=== PATIENT | male | born 1960 | race Caucasian/White ===

== ENCOUNTER 2021-08-03 13:13 | Emergency (ER) | payer MEDICARE ==
--- NOTE | 2021-08-03 15:39 | ER ---
Nurse's Notes [facility] Name: Christian Escalante Age: 61 yrs Sex: Male : 1960 Arrival Date: 08/03/2021 Time: 13:16 Bed Waiting Private MD: Diagnosis: Presentation: 08/03 13:28 Chief complaint: Patient states: "Im pretty sure I have staph". Pt first noticed sores vg1 about 3 days ago. States on head, lip, MARIE arms, MARIE legs and buttocks. Coronavirus screen: Vaccine status: Patient reports receiving the 1st dose of the Covid vaccine. J\\T\\J Client denies travel out of the [place] in the last 14 days. Ebola Screen: Patient negative for fever greater than or equal to 101.5 degrees Fahrenheit, and additional compatible Ebola Virus Disease symptoms. Initial Sepsis Screen: Does the patient meet any 2 criteria? No. Patient's initial sepsis screen is negative. Does the patient have a suspected source of infection? No. Patient's initial sepsis screen is negative. Risk Assessment: Do you want to hurt yourself or someone else? Patient reports no desire to harm self or others. Onset of symptoms was July 31, 2021. 13:28 Acuity: SUKHDEEP 3 vg1 13:28 Method Of Arrival: EMS: [facility] vg1 Triage Assessment: 13:33 General: Appears in no apparent distress. comfortable, Behavior is cooperative, vg1 anxious. Pain: Complains of pain in MARIE arms, MARIE legs. Historical: - Allergies: 13:32 Stadol; vg1 - Home Meds: 13:40 atorvastatin oral [Active]; amlodipine oral [Active]; Amitriptyline Oral [Active]; vg1 Albuterol Inhl [Active]; Cyclobenzaprine Oral [Active]; Furosemide Oral [Active]; Lisinopril Oral [Active]; Omeprazole Oral [Active]; rivaroxaban oral [Active]; Xarelto oral [Active]; - PMHx: 13:33 Hypertensive disorder; High Cholesterol; Emphysema; Asbestosis; vg1 - Immunization history:: Adult Immunizations up to date, Client reports receiving the Miguel \\T\\ Miguel single-dose vaccine. - Social history:: Smoking status: Patient reports the use of cigarette tobacco products, smokes one pack cigarettes per day. Assessment: 15:15 Reassessment: Called pt from [facility]; pt did not respond. vg1 15:38 Reassessment: called from lobby; pt did not respond. Security stated pt stated was vg1 leaving and had someone to mushroom picker from hospital. Vital Signs: 13:28 BP 112 / 85; Pulse 95; Resp 18; Temp 97.6; Pulse Ox 96% ; Weight 70.76 kg; Height 6 ft. vg1 1 in. (185.42 cm); Pain 10/10; 13:28 Body Mass Index 20.58 (70.76 kg, 185.42 cm) vg1 ED Course: 13:16 Patient arrived in ED. ds1 13:32 Triage completed. vg1 13:33 Arm band placed on. vg1 14:07 Taz Ram PA is PHCP. serjio 14:07 Edward Medeiros MD is Attending Physician. serjio Administered Medications: No medications were administered Outcome: 15:39 Patient left the ED. vg1 Signatures: Taz Ram PA PA jmm Sanford, Demi ds1 Rachel Mora, RN RN vg1 Corrections: (The following items were deleted from the chart) 13:33 13:28 Method Of Arrival: Ambulatory vg1 vg1
[2021-08-03 15:52] VITALS: BP 112/85; TEMP 97.6; O2SAT 96
--- NOTE | 2021-08-04 15:39 | EDPHYS ---
Physician Documentation [facility] Name: Christian Escalante Age: 61 yrs Sex: Male : 1960 Arrival Date: 08/03/2021 Time: 13:16 Bed Waiting Private MD: ED Physician Edward Medeiros Historical: - Allergies: 08/03 13:32 Stadol; vg1 - Home Meds: 13:40 atorvastatin oral [Active]; amlodipine oral [Active]; Amitriptyline Oral [Active]; vg1 Albuterol Inhl [Active]; Cyclobenzaprine Oral [Active]; Furosemide Oral [Active]; Lisinopril Oral [Active]; Omeprazole Oral [Active]; rivaroxaban oral [Active]; Xarelto oral [Active]; - PMHx: 13:33 Hypertensive disorder; High Cholesterol; Emphysema; Asbestosis; vg1 - Immunization history:: Adult Immunizations up to date, Client reports receiving the Miguel \T\ Miguel single-dose vaccine. - Social history:: Smoking status: Patient reports the use of cigarette tobacco products, smokes one pack cigarettes per day. Vital Signs: 13:28 BP 112 / 85; Pulse 95; Resp 18; Temp 97.6; Pulse Ox 96% ; Weight 70.76 kg; Height 6 ft. vg1 1 in. (185.42 cm); Pain 10/10; 13:28 Body Mass Index 20.58 (70.76 kg, 185.42 cm) vg1 MDM: 17:12 ED course: Eloped from the ER prior to my evaluation.. m Administered Medications: No medications were administered Disposition: 08/04 05:19 Co-signature as Attending Physician, Edward Medeiros MD I agree with the assessment and kdr plan of care. Disposition Summary: 08/03/21 15:39 Eloped Disposition: before being seen by provider vg1 Problem: new vg1 Reason: other vg1 Condition: Fair vg1 Signatures: Edward Medeiros MD MD kdr Mickail, Joel, PA PA jmm Garcia, Victoria RN RN vg1
== END 2021-08-03 15:39 | disposition left against medical advice (07) ==
LOC: ER 13:13
DX: Z53.21 Procedure and treatment not carried out due to patient leaving prior to being seen by health care provider (principal)
CPT/HCPCS: 99282